=== PATIENT | female | born 1935 | race Two or more races ===

== ENCOUNTER 2018-01-29 08:14 | Emergency (ER) | payer MEDICARE, OTHER ==
[~2018-01-29] VITALS: Ht 154.9 cm; Wt 79.4 kg
--- NOTE | 2018-01-29 08:35 | NUR ---
PT BIBSELF C/O R BUTTOCK PAIN AND SWELLING X 2 DAYS. "I HAVE AN ABSCESS."
[2018-01-29] MEDS ORDERED: LIDOCAINE 1%-EPI 1:100,000 20 ML VIAL ONE (09:02)
[2018-01-29] MEDS ORDERED: SULFAMETH/TRIMETH 800/160 MG 1 UDTAB TABLET PO ONE ×2 (09:03→09:30)
--- NOTE | 2018-01-29 09:14 | NUR ---
DR ARECHIGA AT BEDSIDE
--- NOTE | 2018-01-29 09:33 | NUR ---
Patient discharged to home in stable condition. Written and verbal after care instructions given. Patient verbalizes understanding of instruction.
[2018-01-29 09:34] VITALS: BP 132/80
== END 2018-01-29 09:36 | disposition home or self-care (01) ==
LOC: ER 08:26
DX: L72.3 Sebaceous cyst (principal); L02.31 Cutaneous abscess of buttock; J45.909 Unspecified asthma, uncomplicated
CPT/HCPCS: A4606; A6402; A6403; A6407; J3490; Z7610